=== PATIENT | female | born 1930 | race Caucasian/White ===

== ENCOUNTER → 2017-02-24 | Outpatient (CLI) | payer OTHER | LOC: BMCIMAGING 16:22 | PROVIDERS: ATTEND Emergency Medicine | DX: M25.532 Pain in left wrist (principal) ==

== ENCOUNTER 2017-09-27 09:03 | Emergency (ER) | payer OTHER ==
--- NOTE | 2017-09-27 09:25 | EDPHY ---
H & P Stated Complaint: Anxiety/abd pain - Personal History Current Tetanus/Diphtheria Vaccine: No - Medical/Surgical History Hx Asthma: No Hx Chronic Respiratory Disease: No Hx Diabetes: No Hx Cardiac Disease: No Hx Renal Disease: No Hx Cirrhosis: No Hx Alcoholism: No Hx HIV/AIDS: No Hx Splenectomy or Spleen Trauma: No Other PMH: pmh- bells palsy L side, hld - Social History Smoking Status: Never smoked Time Seen by Provider: 09/27/17 09:15 HPI/ROS: CHIEF COMPLAINT: "I don't want to alone" HISTORY OF PRESENT ILLNESS: 87-year-old female arrives via ambulance from her home after her daughter in [facility] called an ambulance for concerns over anxiety, epigastric discomfort, hypertension. Patient describes 2 months of intermittent nausea and epigastric discomfort which started after a plane flight or she developed heavy amounts of mucus. Patient is currently asymptomatic. She denies experiencing currently or recently chest pain with exertion, dyspnea with exertion, syncope or near syncope. She lives by herself and feels comfortable taking care of her self. She has a daughter in [place]. She denies: Vomiting, bowel movement abnormality, urinary abnormality. PRIMARY CARE PROVIDER: Dr Alba Levine REVIEW OF SYSTEMS: A ten point review of systems was performed and is negative with the exception of the items mentioned in the HPI PAST MEDICAL & SURGICAL HISTORY: Hypertension, anxiety, depression previously prescribed medicines for these conditions but has self discharged 2 years ago. Last saw primary care provider 2 years ago. SOCIAL HISTORY: Lives by herself. Nonsmoker. No drug use. Feels that she is able to care for self well. Has a daughter in [place] and in [facility] PHYSICAL EXAM (Prior to examination, patient consented to physical exam, hands were washed and my usual and customary physical exam procedures followed) 1) GENERAL: Well-developed, well-nourished, alert and oriented person place time events Appears to be in no acute distress. Smiling. 2) HEAD: Normocephalic, atraumatic 3) HEENT: Pupils equal, round, reactive to light bilaterally. Sclera anicteric. Nasopharynx, oropharynx, clear, no lesions. Moist mucous membranes. 4) NECK: Full range of motion, no meningeal signs. No carotid bruit 5) LUNGS: Clear auscultation bilaterally, no wheezes, no rhonchi, no retractions. 6) HEART: Regular rate and rhythm, no murmur, no heave, no gallop. 7) ABDOMEN: No guarding, no rebound, no focal tenderness, negative McBurney's, negative Ruth's, negative Rovsing's, negative peritoneal sign, 8) MUSCULOSKELETAL: Moving all extremities, no focal areas of tenderness, no obvious trauma. No peripheral edema or discoloration. 9) BACK: No CVA tenderness, no midline vertebral tenderness, no fluctuance, no step-off, no obvious trauma, no visual or palpable abnormality. 10) SKIN: No rash, no petechiae. 11) Psychiatric: Patient is oriented X 3, there is no agitation. DIFFERENTIAL DIAGNOSIS: In no particular order, including but not limited to biliary colic, cholecystitis, peptic ulcer disease, pancreatitis, and gastroenteritis. This is a partial list of diagnoses considered. These considerations are based on history, physical exam, past history and reassessment. (Low Loomis) Constitutional: Initial Vital Signs Temperature (C) 36.8 C 09/27/17 09:18 Heart Rate 112 H 09/27/17 09:18 Respiratory Rate 18 09/27/17 09:18 Blood Pressure 180/125 H 09/27/17 09:18 O2 Sat (%) 96 09/27/17 09:18 O2 Delivery Mode Room Air Allergies/Adverse Reactions: No Known Allergies Allergy (Unverified 09/27/17 09:21) Home Medications: Medication Instructions Recorded NK [No Known Home Meds] 10/08/14 Medical Decision Making - Diagnostics Imaging Results: Imaging Impressions Chest X-Ray 09/27/17 09:25 Impression: No acute abnormality, or interval change since 10/08/2014. Imaging Impressions Chest X-Ray 09/27/17 09:25 Impression: No acute abnormality, or interval change since 10/08/2014. Images reviewed myself (Low Loomis) ED Course/Re-evaluation: I reviewed the patient's old medical records. Patient was also seen and examined by Dr. Jacob Cade in the ER. It is not completely clear why the patient is in the emergency department. Will attempt to contact the patient's daughter in [facility] who allegedly called 911. The patient is complaining of intermittent epigastric nausea and discomfort over the past 2 months, currently asymptomatic. She shows no evidence of altered mental status. She is afebrile. Discussed with patient her blood pressure. She notes history of hypertension. Notes that she does not want to be on medication and is fully aware of the risks of untreated hypertension "I'm fine with those risks". manager combination has spoke with the patient. Patient's daughter at bedside. I had a lengthy discussion with the daughter and patient. Last time patient saw her primary care provider was 2 years ago. manager combination is going to make an appointment for the patient and the daughter will take her. Patient will think about whether she would like to be back on antihypertensive and SSRI. Patient and daughter note numerous recent life stressors. Patient feels comfortable taking care of herself. Patient I discussed possible etiologies for her epigastric discomfort which include, but not limited to, gastritis. She is not interested in a daily medication such as a proton pump inhibitor. We discussed, and she feels prefers , keeping Maalox or Tums on hand at home. (Low Loomis) Other Provider: PHYSICIAN DOCUMENTATION: The patient was evaluated and managed by the Physician X Ray Physician and myself. I have reviewed the chart and agree with the findings and plan of care as documented. In addition, I examined the patient myself. History confirmed as the patient tells me about a lot of mucus in her nose from a plane flight multiple weeks ago, when asked what we can do for here in the emergency department she says mainly she just wants "something to calm my stomach down." Physical findings as follows: Abdomen soft and nontender. Patient has moderately anxious affect. Regular rate and rhythm, no abnormal lung sounds, speaks in full sentences. Will treat symptomatically, negative workup; doubt hypertensive emergency. I am the secondary supervising physician. (Jacob Cade) - Data Points Laboratory Results: Laboratory Results 09/27/17 09:45 09/27/17 09:45 09/27/17 09/27/17 09/27/17 10:02 09:45 09:45 WBC 8.09 10^3/uL 10^3/uL (3.80-9.50) RBC 4.44 10^6/uL 10^6/uL (4.18-5.33) Hgb 13.8 g/dL g/dL (12.6-16.3) Hct 40.9 % % (38.0-47.0) MCV 92.1 fL fL (81.5-99.8) MCH 31.1 pg pg (27.9-34.1) MCHC 33.7 g/dL g/dL (32.4-36.7) RDW 12.8 % % (11.5-15.2) Plt Count 260 10^3/uL 10^3/uL (150-400) MPV 9.2 fL fL (8.7-11.7) Neut % (Auto) 67.2 % % (39.3-74.2) Lymph % (Auto) 22.7 % % (15.0-45.0) [place] % (Auto) 8.0 % % (4.5-13.0) Eos % (Auto) 0.7 % % (0.6-7.6) Baso % (Auto) 1.0 % % (0.3-1.7) Nucleat RBC Rel Count 0.0 % % (0.0-0.2) Absolute Neuts (auto) 5.43 10^3/uL 10^3/uL (1.70-6.50) Absolute Lymphs (auto) 1.84 10^3/uL 10^3/uL (1.00-3.00) Absolute Monos (auto) 0.65 10^3/uL 10^3/uL (0.30-0.80) Absolute Eos (auto) 0.06 10^3/uL 10^3/uL (0.03-0.40) Absolute Basos (auto) 0.08 10^3/uL 10^3/uL (0.02-0.10) Absolute Nucleated RBC 0.00 10^3/uL 10^3/uL (0-0.01) Immature Gran % 0.4 % % (0.0-1.1) Immature Gran # 0.03 10^3/uL 10^3/uL (0.00-0.10) Sodium 141 mEq/L mEq/L (135-145) Potassium 3.8 mEq/L mEq/L (3.3-5.0) Chloride 108 mEq/L mEq/L (97-110) Carbon Dioxide 24 mEq/l mEq/l (22-31) Anion Gap 9 mEq/L mEq/L (8-16) BUN 16 mg/dL mg/dL (7-23) Creatinine 0.7 mg/dL mg/dL (0.6-1.0) Estimated GFR > 60 Glucose 132 mg/dL H mg/dL (70-100) Calcium 9.7 mg/dL mg/dL (8.5-10.4) Total Bilirubin 0.5 mg/dL mg/dL (0.1-1.4) Conjugated Bilirubin 0.1 mg/dL mg/dL (0.0-0.5) Unconjugated Bilirubin 0.4 mg/dL mg/dL (0.0-1.1) AST 22 IU/L IU/L (14-46) ALT 24 IU/L IU/L (9-52) Alkaline Phosphatase 59 IU/L IU/L (38-126) POC Troponin I 0.00 ng/mL ng/mL (0.00-0.08) Total Protein 6.9 g/dL g/dL (6.3-8.2) Albumin 4.1 g/dL g/dL (3.5-5.0) Lipase 126 IU/L IU/L (23-300) Medications Given: Discontinued Medications Al Hydroxide/Mg Hydroxide (Maalox Susp) 30 ml PO ONCE ONE Stop: 09/27/17 09:31 Last Admin: 09/27/17 10:01 Dose: 30 ml Hyoscyamine Sulfate (Levsin, Hyomax-Sl) 0.25 mg PO ONCE ONE Stop: 09/27/17 09:31 Last Admin: 09/27/17 10:02 Dose: 0.25 mg Lidocaine (Lidocaine 2% Viscous) 15 ml PO ONCE ONE Stop: 09/27/17 09:31 Last Admin: 09/27/17 10:01 Dose: 15 ml Point of Care Test Results: Chemistry 09/27/17 10:02 POC Troponin I 0.00 ng/mL ng/mL (0.00-0.08) Departure - Departure Disposition: Home, Routine, Self-Care Clinical Impression: Abdominal pain Qualifiers: Abdominal location: epigastric Qualified Code(s): R10.13 - Epigastric pain Condition: Good Instructions: Acute Abdominal Pain (ED) Additional Instructions: Seek immediate medical attention if you develop new or worsening symptoms, if you develop fevers, chills, inability to tolerate oral intake or any other symptoms that concerns you. Please follow-up with Dr. Alba Levine. I recommend you discussed with Dr. Alba Levine anxiety, depression, high blood pressure. If any point you feel you are having thoughts of hurting herself or others please call 911 immediately or if you feel you are unable to care for herself. Referrals: Alba Levine MD [Primary Care Provider] - As per Instructions
[2017-09-27] MEDS ORDERED: MAG HYDROX/AL HYDROX/SIMETH 30 ML UDCUP PO ONE (09:30)
[2017-09-27] MEDS ORDERED: HYOSCYAMINE SULFATE 0.125 MG TAB PO ONE (09:30)
[2017-09-27] MEDS ORDERED: LIDOCAINE 2% VISCOUS 15 ML UDCUP PO ONE (09:30)
[2017-09-27 09:55] LABS: PLATELET COUNT 260 10^3/uL (150-400)
--- NOTE | 2017-09-27 10:30 | CPEKG ---
Test Reason : OPEN Blood Pressure : / mmHG Vent. Rate : 075 BPM Atrial Rate : 075 BPM P-R Int : 157 ms QRS Dur : 095 ms QT Int : 392 ms P-R-T Axes : 057 042 046 degrees QTc Int : 438 ms Sinus rhythm Confirmed by Jacob Cade ([id number]) on 09/27/2017 10:29:26 AM Referred By: Confirmed By:Jacob Cade
[2017-09-27 11:23] VITALS: BP 158/98
--- NOTE | 2017-09-27 13:48 | ASMTCMCOM ---
CM Note CM Note Notes: Met with patient and her daughter Josafat at the bedside. Patient is a good historian with an interesting history-born in [place] and grew up during [place]. She has been since 1993 and lost a son to a mountaineering accident when he was 25 years old. Sge has 2 daughters: Josafat, who lives in [place] and visits patient frequently, and her sisiter, Teri lives in [place]. Patient states that although she is sometimes lonely, she does not desire to live in a detention community. Josafat adds that patient was on the list for [facility] in [place] and patient removed herself form "the list" after she was offered (and refused) 2-3 apartments when they became availble. Josafat agrees with patient that she is safe living alone, but worries about her being isolated and lonely. Patient has a history of depression and anxiety but has been resistant to taking medication. She has not been to her PCP in "2 years or more" and I did encourage her to do this and offered to schedule a follow up appointment for her. I have contacted Dr. Mckenzie's office and scheduled an appointment for October 09 at 3:15 and faxed a copy of patient's ER visit to Dr. Mckenzie. Appointment confirmed with Josafat Date Signed: 09/27/2017 01:47 PM Electronically Signed By:Jennifer Newman RN
--- NOTE | 2017-09-27 13:57 | ASMTCMCOM ---
CM Note CM Note Notes: Clarification: Patient's PCP is Dr. Alba Levine . Follow up appointment scheduled on October 09 at 3:15 PM Date Signed: 09/27/2017 01:56 PM Electronically Signed By:Jennifer Newman RN
== END 2017-09-27 11:23 | disposition home or self-care (01) ==
LOC: EDUNIT#
DX: R10.13 Epigastric pain (principal); I10 Essential (primary) hypertension; F41.8 Other specified anxiety disorders
CPT/HCPCS: 84484-PO

== ENCOUNTER → 2018-05-13 | Outpatient (CLI) | payer OTHER | LOC: FIMAGING 11:16 | PROVIDERS: ATTEND Internal Medicine | DX: Z13.820 Encounter for screening for osteoporosis (principal); M85.89 Other specified disorders of bone density and structure, multiple sites; E28.39 Other primary ovarian failure ==